=== PATIENT | female | born 1940 | race Caucasian/White ===

== ENCOUNTER 2016-08-09 15:43 | Inpatient (IN) | payer MEDICARE, OTHER ==
[~2016-08-09] VITALS: Ht 172.7 cm; Wt 97.4 kg
--- NOTE | ~2016-08-09 | ECH ---
Transesophageal Echocardiography Report (YAIMA) Demographics Patient Name BARBIE OLSEN Date of Study 08/12/2016 Patient Number [id number] Visit Number [id number] Date of 1940 Room Number 429 Accession Number [id number] Gender Female Age 75 year(s) Referring Jessy Nelson Director Industrial Relations Judy Fam [facility] Physician MD Asher Hercules MD Physician Interpreting King Joseph Curtis MD Juvenile Justice Specialist Physician Supervising Ordering Physician Jessy Nelson MD/MICHELL PAUL Nurse Stress Buildings Painter Conclusions Summary Informed consent obtained. Transesophageal echocardiogram was done under moderate sedation . The estimated left ventricular ejection fraction is 55%. There is no thrombus in the left atrial appendage. Informed consent was obtained, bubble study was done, there is no evidence for a PFO or ASD. Mild mitral regurgitation by color Doppler. Moderate tricuspid regurgitation by color Doppler. Procedure Type of Study YAIMA procedure:YAIMA SF. Procedure Date Date: 08/12/2016 Start: 11:03 AM Technical Quality: Adequate visualization Indications:Atrial fibrillation. Appropriate Use Criteria: 9 Height: 68 inches Weight: 226 pounds BSA: 2.15 m Rhythm: Atrial fibrillation HR: 136 bpm BP: 73/42 mmHg O2 Saturation: 95 % YAIMA Performed By: Dg Cobb MD Type of Anesthesia: Moderate sedation Allergies - Penicillin. - Latex. - Penicillin. - Latex. - Chocolate. Findings Left Atrium There is no thrombus in the left atrial appendage. Informed consent was obtained, bubble study was done, there is no evidence for a PFO or ASD. Mitral Valve Normal mitral valve structure and function. Mild mitral regurgitation by color Doppler. Aortic Valve The aortic valve is mildly sclerotic. There is no aortic regurgitation by color Doppler. Tricuspid Valve Normal tricuspid valve structure and function. Moderate tricuspid regurgitation by color Doppler. Pulmonic Valve The pulmonic valve is not well visualized. Signature
[~2016-08-09 15:43] MED LIST: ADVAIR DIS1 PUFF/DO1 IH; ASA CHILDREN'S81 MG PO; BENADRYL25 MG PO; BRILINTA90 MG PO; CARAFATE DPS1 GM PO; CELEBREX200 MG PO; CEPACOL SORE T1 EAC1 PO; DULCOLAX-DPS BOW5 MG PO; HYDROCORTISONE30 GM TP; KEFLEX-DPS500 MG PO; LIPITOR DPS40 MG PO; LORTAB 5-325 M1 EACH PO; MYCOSTATIN PWD15 GM TP; OXY IR DPS5 MG PO; PROTONIX40 MG PO; SENOKOT S1 TAB PO; SINEMET 10/1001 TAB PO; SURFAK DPS240 MG PO; SURFAK240 MG PO; TUMS DPS500 MG PO; TYLENOL DPS325 MG PO; ULTRAM50 MG PO; XARELTO10 MG PO
--- NOTE | 2016-08-12 08:28 | HP ---
ADMIT: 08/09/2016 RM/LOC: 429 [facility] MR#: [id number] 2620 [facility] [address] [place] [id number] BARBIE OLSEN [address] [place] [address] History and Physical SEX: F AGE: 75 : 1940 DATE OF SERVICE: REASON FOR ADMISSION: Progressive shortness of breath, weight gain, evidence of diastolic heart failure, recent fall, some lower abdominal pain and discomfort. HISTORY OF PRESENT ILLNESS: Ms. Olsen presented to our office today after having approximately over the course of the last month, 14 pounds of weight gain. She has developed lower extremity peripheral edema which is 2+ to 3+. The edema extends into her lower abdomen. She also was having increasing shortness of breath. She recently had a fall, where she was opening a gate at her home and she fell striking the left side of her face. She does have on physical exam, an abraised area as well as soft tissue bruising. She was hospitalized in February of this past year, she had an acute LA on 01/16/2016. On 02/19/2016, she had a PTCA with stent placement. Her heart catheterization on 01/16/2016, showed proximal LAD ostial 100% lesion, mid circumflex 99%, mid RCA 80% with PCI performed echocardiogram on 01/16/2016, showed an ejection fraction of 50%, grade 2 diastolic dysfunction, left atrium is mildly dilated. Right atrium mildly dilated, [id number] mitral regurgitation, aortic sclerosis, mild tricuspid regurgitation, moderate pulmonary hypertension, and ascending aortic mildly dilated. CTA of chest on 02/18/2016, showed no evidence of aortic aneurysm or dissection, but did show scattered fibrotic atelectic changes in the lungs and small pericardial effusion. PAST MEDICAL HISTORY: She also has a known past medical history of diabetes, essential tremor, hypertension, and family history of coronary artery disease. SOCIAL HISTORY: She lives alone independently, but has a very close family. She with her last hospitalization, had upper GI bleed. She has had a history of bilateral rotator cuff repairs and left total knee arthrotomy. FAMILY HISTORY: Her father had an LA. Her mother did not have any heart disease, though history of asthma. REVIEW OF SYSTEMS: She reports that she has had increasing shortness of breath and has had progressive weight gain over the last month. She has not had any anterior chest pain or chest pressure. She has had progressive increasing shortness of breath and respiratory distress. She also has had progressive lower extremity edema. She has an essential tremor which has worsened over the course of the last several years. ALLERGIES: SHE IS ALLERGIC TO PENICILLIN, IT CAUSES HIVES. SHE IS ALSO ALLERGIC TO LATEX. CURRENT MEDS: 1. Breo 100/25 mcg one puff daily. 2. Ferrous sulfate 325 mg daily. 3. Flonase 50 mcg two sprays daily. 4. Potassium 20 mEq daily. ADMIT: 08/09/2016 RM/LOC: 429 [facility] MR#: [id number] [address] [id number] BARBIE OLSEN [address] [place] [address] History and Physical SEX: F AGE: 75 : 1940 5. Lasix 40 mg b.i.d. 6. Lipitor 40 mg daily. 7. Plavix 75 mg daily. 8. Propranolol ER 80 mg one tab p.o. daily. 9. Tessalon Perles 100 mg p.o. t.i.d. p.r.n. 10.Tylenol p.r.n. 11.Xanax 0.25 mg daily. 12.Zoloft 50 mg daily. PHYSICAL EXAMINATION: GENERAL: She is alert, articulate, and dyspneic at rest. Her SaO2 is 90%. Her blood pressure is 112/86, heart rate is 108 slightly irregular. Her weight is 228 pounds. On last assessment on 07/23/2016, weight was 218 pounds. Ten pounds of weight gain, prior to that time had gained additional 4 pounds. GENERAL: She is alert and articulate. HEENT: Normal. HEART: Regular with a grade 2/6 systolic murmur. LUNGS: Diminished to auscultation. She has significant tremor. ABDOMEN: Rounded, obese, and soft. She does have some peripheral edema which extends from her lower extremity, 2+ to 3+ to her lower abdomen. EXTREMITIES: Extremely tender secondary to her edematous condition. ASSESSMENT: Admission of a 75-year-old white female with known coronary artery disease, status post acute myocardial infarction, status post PCI dating back to February of this past year; evidence of diastolic dysfunction with progressive peripheral edema as well as evidence of cor pulmonale, history of chronic obstructive pulmonary disease, history of recent fall with abrasion and soft tissue bruising of her left moravian. We will obtain further assessment with CT scan of her brain tonight. History of some mild abdominal discomfort. We will obtain further assessment with ultrasound of her abdomen. For her cardiac function, we will get cardiac enzymes. Check a BMP, echocardiogram, chest x-ray as well as CBC and CMP. We will ask Cardiology to follow. In addition, she will be given one dose of Lasix 80 mg this evening. We will await further assessment. Also for her chronic obstructive pulmonary disease, we will start her on DuoNeb breathing treatments as well as await a chest x-ray. At this time, her condition is stable. Workup is in progress. Sherry Sterling MD/ simon JOB #: [id number] CC: Sherry Sterling MD, Attending Physician Sherry Sterling MD, Family Physician
[2016-08-15] MEDS ORDERED: LASIX40 MG PO (12:39)
[2016-08-15] MEDS ORDERED: ZOLOFT DPS50 MG PO (12:39)
[2016-08-15] MEDS ORDERED: KLOR-CON M2020 ME1 PO (12:40)
[2016-08-15] MEDS ORDERED: LIPITOR40 MG PO (12:41)
[2016-08-15] MEDS ORDERED: INDERAL-DPS80 MG PO (12:41)
[2016-08-15] MEDS ORDERED: XANAX DPS0.25 MG PO (12:42)
[2016-08-15] MEDS ORDERED: PLAVIX75 MG PO (12:42)
[2016-08-15] MEDS ORDERED: MIRALAX PACKET17 GM PO (12:43)
[2016-08-15] MEDS ORDERED: GUMMI BEAR MUL1 EACH PO (12:43)
[2016-08-15] MEDS ORDERED: FLONASE 0.05% D16 GM IH (12:43)
[2016-08-15] MEDS ORDERED: MAALOX DPS30 ML PO (12:44)
[2016-08-15] MEDS ORDERED: TYLENOL DPS325 MG PO (12:44)
[2016-08-15] MEDS ORDERED: INDERAL-DPS40 MG PO (12:45)
[2016-08-15] MEDS ORDERED: NEURONTIN DPS300 MG PO (12:45)
[2016-08-15] MEDS ORDERED: FEOSOL-DPS325 MG PO (12:46)
[2016-08-15] MEDS ORDERED: TESSALON PERLE100 M1 PO (12:46)
[2016-08-15] MEDS ORDERED: BREO ELLIP1 PUFF/DOS IH (12:46)
[2016-08-15] MEDS ORDERED: COUMADIN5 MG PO (12:47)
[2016-08-15] MEDS ORDERED: PACERONE400 MG PO (12:47)
--- NOTE | 2016-08-16 16:25 | CVR ---
ADMIT: 08/09/2016 RM/LOC: 429 [facility] MR#: [id number] [address] [address] BARBIE OLSEN [address] [place] [address] Cardioversion Report SEX: F AGE: 75 : 1940 DATE: 08/13/2016 PROCEDURE: YAIMA cardioversion. INDICATION: The patient is a 75-year-old female, who presented with atrial fibrillation, and some chest tightness. Because of these symptoms, she is undergoing a YAIMA cardioversion today. PROCEDURE IN DETAIL: After obtaining informed consent, the patient was sedated under Anesthesia's direction. The YAIMA probe was advanced into the posterior oropharynx and the images were obtained. Once this was completed, and no thrombus was noted, the YAIMA probe was removed. The patient was then cardioverted with 100 joules of synchronized energy. This converted her to sinus rhythm after the first attempt. ASSESSMENT AND PLAN: The patient will continue on amiodarone for sinus rhythm. Continue on anticoagulation with Coumadin. Joseph Cobb MD/ simon JOB #: [id number] CC: Sherry Sterling MD, Attending Physician Sherry Sterling MD, Family Physician Sherry Sterling MD
--- NOTE | 2016-08-22 07:49 | DS ---
ADMIT: 08/09/2016 RM/LOC: 429 [facility] MR#: [id number] [address] [address] BARBIE OLSEN [address] [place] [address] Discharge Summary SEX: F AGE: 75 : 1940 ADMISSION DATE: 08/09/2016 DISCHARGE DATE: 08/14/2016 DISCHARGE DIAGNOSES: 1. New onset atrial fibrillation. 2. History of recent acute myocardial infarction, complicated by GI bleed within the last 6 months with evidence of congestive heart failure. 3. History of severe essential tremor. 4. Chronic obstructive pulmonary disease. 5. Hypertension. HISTORY OF PRESENT ILLNESS: Well documented in her H and P. Her laboratory and radiographic assessment is as follows. On admission, white count was 13,000, hemoglobin 12.9. Near discharge white count was 9.4, hemoglobin 12.3. Urinalysis showed no evidence of acute abnormalities. Her serum sodium was 140, potassium 4.0, BUN and creatinine 34 and 1.3. Blood sugar 137. Her blood sugars ranged between 108 to 104, TSH was 1.21. CT of head showed no acute intracranial process. Chest x-ray showed low lung volumes with mild right base atelectasis pneumonia. Ultrasound of abdomen shows cholelithiasis with borderline gallbladder wall thickening. Cannot exclude acute cholecystitis, hypergenesis, ill defined periumbilical subcutaneous structure probably related to the known umbilical hernia. PROCEDURES PERFORMED: YAIMA with cardioversion with maintenance of sinus rhythm. YAIMA report showed estimated left ventricular ejection fraction of 55%. No thrombus in left atrial appendix, mild mitral regurg, and mild tricuspid regurgitation. HOSPITAL COURSE: Barbie was admitted from our office with weight gain, increasing shortness of breath, signs and symptoms of congestive heart failure. She was initially placed in the hospital, was followed by Cardiology, was found to be in atrial fibrillation. She initially was started on anticoagulation. She had a CT of her brain performed that she had a fall earlier in the week. She was on Plavix therapy as well as she has some ADMIT: 08/09/2016 RM/LOC: 429 [facility] MR#: [id number] [facility] [address] [place] [id number] BARIBE OLSEN Ever [address] [place] [address] Discharge Summary SEX: F AGE: 75 : 1940 periumbilical abdominal pain and ultrasound was obtained. We gave her DuoNeb breathing treatments. Lasix long-term Noel's. ABGs were obtained. She was seen and evaluated by Cardiology. Her Lasix was increased to b.i.d. dosing as well as she was started on heparin. She is also given digoxin for rate control. Continued on her Plavix daily. She was placed on amiodarone for rate control and then underwent further evaluation for YAIMA and planned cardioversion. She was started on Coumadin therapy in combination with her heparin therapy and p.o. amiodarone. She then subsequently was discharged home on amiodarone 400 mg b.i.d. x1 week then 200 mg daily. She will follow up with Dr. Cobb in 4 to 6 weeks. Follow up with me in 1 week. She will continue anticoagulation with Coumadin therapy. We will continue to follow closely. Sherry Sterling MD/ simon JOB #: [id number] CC: Sherry Sterling MD, Attending Physician Sherry Sterling MD, Family Physician
--- NOTE | 2016-08-23 14:31 | CO ---
ADMIT: 08/09/2016 RM/LOC: 429 [facility] MR#: [id number] [address] [facility] [address] [place] [id number] BARBIE OLSEN [address] [place] [address] Consultation SEX: F AGE: 75 : 1940 DATE OF CONSULTATION: 08/09/2016 ATTENDING PHYSICIAN: Sherry Sterling MD CONSULTING PHYSICIAN: Elba Amos MD REASON FOR CONSULTATION: Shortness of breath and history of coronary artery disease. HISTORY OF PRESENT ILLNESS: Barbie presents today to her primary care physician with 3 to 4 weeks of shortness of breath. Prior to this, she has been feeling well. She had fully recovered from her MRI which she experienced back in January. She has been noticing some orthopnea and lower extremity edema. She is denying any chest pain or pressure that would remind her of her prior angina or coronary artery disease. She is also denying anything to suggest arrhythmia currently. She has been getting weaker. She denies any near syncope. PAST MEDICAL HISTORY: Includes: 1. Coronary artery disease with history of PCI to her LAD in January of 2016 and a PCI to her mid circumflex and mid RCA in February 2016. 2. Hypertension. 3. Asthma. 4. History of rheumatoid arthritis. 5. History of GI bleed. MEDICATIONS: Currently include: 1. Furosemide 40 mg twice a day p.o. 2. Gabapentin 300 mg at bedtime. 3. Sertraline 50 mg daily. 4. Potassium 20 mEq daily. 5. Atorvastatin 40 mg at bedtime. 6. Propranolol 80 mg q.a.m. and 40 mg in the evening. 7. Alprazolam 0.25 mg three times a day as needed. 8. Clopidogrel 75 mg a day. 9. Multivitamin as directed. 10.MiraLax as directed. 11.Flonase 50 a day. 12.Iron as directed. 13.Breo Ellipta as directed. 14.Tessalon as directed. 15.Iron 325. ALLERGIES: INCLUDE PENICILLIN, LATEX, AND MILK. FAMILY HISTORY: Father with an KS. Mother with an KS. Mother with asthma. SOCIAL HISTORY: She has never smoked. She works as a license clerk still. She is a social drinker. Son is present today. ADMIT: 08/09/2016 RM/LOC: 429 [facility] MR#: [id number] [address] [address] BARBIE OLSEN [address] [place] [address] Consultation SEX: F AGE: 75 : 1940 REVIEW OF SYSTEMS: A full 12-point review of systems was reviewed and deemed to be negative except for the pertinently dictated positives in the HPI. PHYSICAL EXAMINATION: Today: VITAL SIGNS: Her blood pressure is 91/64, her pulse is 130, temp is 98.1, weight today is 226 pounds. GENERAL: She is a pleasant well-nourished, well-developed white female, in no acute distress. Oriented x3. NECK: Shows brisk carotid upstrokes. No JVD or bruit. CHEST: Clear. HEART: Irregular and tachy. ABDOMEN: Soft. EXTREMITIES: No cyanosis or clubbing. 1 to 2+ pretibial edema bilaterally. MUSCULOSKELETAL: Normal. NEUROLOGIC: Normal. SKIN: [place], warm, and dry. LABORATORY AND X-RAY DATA: Laboratory and ancillary data are currently pending. Telemetry shows atrial fibrillation with RVR. ASSESSMENT AND PLAN: 1. New-onset atrial fibrillation with rapid ventricular response. 2. Congestive heart failure, undetermined etiology. 3. Coronary artery disease, history of PCI. 4. Shortness of breath. 5. Parkinson disease. New-onset atrial fibrillation with rapid ventricular response, we will start her on a Cardizem drip. No bolus with her hypotension. We will start heparin drip as well. She does have a history of upper GI bleed with endoscopy in January. No obvious etiology was noted. We will monitor closely and continue Plavix and aspirin with history of PCI. Monitor response to IV Lasix. We will check an echocardiogram. Thank you for this consultation. Elba Amos MD/ simon JOB #: [id number] CC: Sherry Sterling MD, Attending Physician Sherry Sterling MD, Family Physician
== END 2016-08-14 14:25 | disposition home or self-care (01) | DRG 308 ==
LOC: 4PCU 15:43
PROVIDERS: ADMIT Internal Medicine
PROC: 5A2204Z Restoration of Cardiac Rhythm, Single (ICD-10-PCS; principal; 2016-08-13)
DX: I48.91 Unspecified atrial fibrillation (principal); I50.33 Acute on chronic diastolic (congestive) heart failure; I95.89 Other hypotension; G20 Parkinson's disease; J44.0 Chronic obstructive pulmonary disease with (acute) lower respiratory infection; J98.11 Atelectasis; I27.81 Cor pulmonale (chronic); I11.0 Hypertensive heart disease with heart failure; S00.81XA Abrasion of other part of head, initial encounter; W19.XXXA Unspecified fall, initial encounter; F41.9 Anxiety disorder, unspecified; I08.3 Combined rheumatic disorders of mitral, aortic and tricuspid valves; E11.9 Type 2 diabetes mellitus without complications; I25.10 Atherosclerotic heart disease of native coronary artery without angina pectoris; J45.909 Unspecified asthma, uncomplicated; M06.9 Rheumatoid arthritis, unspecified; I25.2 Old myocardial infarction; Z79.02 Long term (current) use of antithrombotics/antiplatelets; Z95.5 Presence of coronary angioplasty implant and graft; Z82.49 Family history of ischemic heart disease and other diseases of the circulatory system